=== PATIENT | male | born 1965 | race African-American/Black ===

== ENCOUNTER 2022-06-16 10:11 | Observation (INO) | payer BC, MEDICAID ==
[2022-06-13 14:41] LABS: BASOPHILS % (AUTO) 0.7 % (0-1); EOSINOPHILS # (AUTO) 0.2 X10'3 (0-0.9); EOSINOPHILS % (AUTO) 4.9 % (0-6); LYMPHOCYTES # (AUTO) 1.3 X10'3 (1.1-4.8); LYMPHOCYTES % (AUTO) 27.3 % (21-51); MEAN CORPUSCULAR HEMOGLOBIN 31.2 PG (27.0-31.0); MEAN CORPUSCULAR HGB CONC 32.7 g/dL (33.0-36.5); MEAN CORPUSCULAR VOLUME 95.4 FL (78-98); MEAN PLATELET VOLUME 8.9 FL (7.4-10.4); MONOCYTES # (AUTO) 0.5 X10'3 (0-0.9); MONOCYTES % (AUTO) 10.4 % (2-12); NEUTROPHILS # (AUTO) 2.8 X10'3 (1.8-7.7); NEUTROPHILS % (AUTO) 56.7 % (42-75); PRE OP HEMATOCRIT 46.6 % (42.0-52.0); PRE OP HEMOGLOBIN 15.2 g/dL (14.0-17.9); PRE OP PLATELET COUNT 207 X10'3 (140-440); RED BLOOD COUNT 4.88 X10'6 (4.70-6.10); RED CELL DISTRIBUTION WIDTH 14.3 % (11.5-14.5)
[2022-06-13 14:51] LABS: PRE OP INR 1.1 INR; PRE OP PROTIME 11.5 SECONDS (9.0-12.0)
[2022-06-13 14:56] LABS: HEMOGLOBIN A1C 6.1 % (4.5-6.2)
[2022-06-13 14:57] LABS: ALBUMIN 3.8 G/DL (3.4-5.0); ALBUMIN/GLOBULIN RATIO 0.9 (1.1-1.5); ALKALINE PHOSPHATASE 73 IU/L (46-116); BLOOD UREA NITROGEN 20 MG/DL (7-18); BUN/CREATININE RATIO 11.1 (5.4-32.0); CALCIUM 8.9 MG/DL (8.5-10.1); CHLORIDE 101 MMOL/L (99-107); PRE OP ALT 39 U/L (30-65); PRE OP ANION GAP 6 (8-16); PRE OP AST 31 U/L (10-37); PRE OP BILIRUB, TOTAL 0.7 MG/DL (0.0-1.0); PRE OP GLUCOSE 93 MG/DL (70-104); PRE OP POTASSIUM 4.2 MMOL/L (3.4-5.1); PRE OP SODIUM 138 MMOL/L (135-145); TOTAL CARBON DIOXIDE 31.4 MMOL/L (24-32); TOTAL PROTEIN 8.1 G/DL (6.4-8.2); eGFR 47 ML/MIN
[2022-06-16] VITALS (13 sets, daily range): BP systolic 109–144; BP diastolic 79–102
[~2022-06-16] VITALS: Ht 180.3 cm; Wt 132.7 kg
[~2022-06-16 10:11] MED LIST: AMIO400T5 PO; APIX5TAB5 PO; ASPI-611 PO; ATOR40TA PO; BUME2TAB7 PO; CARV3.122 PO; EZET10TA48 PO; GABA-530; MEXI150C PO; SACU1TAB PO; SPIR25TA5 PO; famotidine 20mg tablet PO ONE; normal saline 1000ml 1,000 ML IV ONE; ringers solution, lacted 1,000 ML IV SCH
[2022-06-16] MEDS ORDERED: fentaNYL/PF 50MCG/1 ML 2ML syringe ONE ×2 (10:51→13:58)
[2022-06-16] MEDS ORDERED: midazolam 1 mg/ML 2ml injection ONE ×2 (10:51→13:59)
[2022-06-16] MEDS ORDERED: iohexol 350MG/ML 100ml bottle IV ONE (10:51)
[2022-06-16] MEDS ORDERED: vancomycin 1,000mg inj ONE (10:51)
[2022-06-16] MEDS ORDERED: LIDOCAINE 2%/EPI 1:100,000 inj. Multi-dose 20 ML VIAL ONE ×2 (10:52→10:53)
[2022-06-16] MEDS ORDERED: etomidate 2mg/ml inj. ONE (13:59)
[2022-06-16] MEDS ORDERED: dexamethasone sod phosphate 10mg/ml inj ONE (14:02)
[2022-06-16] MEDS ORDERED: sevoflurane 250ml liquid IH ONE (14:02)
[2022-06-16] MEDS ORDERED: ceFAZolin 1000mg inj ONE ×3 (14:35→16:50)
[2022-06-16] MEDS ORDERED: rocuronium 10mg/ml inj IV ONE (14:35)
[2022-06-16] MEDS ORDERED: propofol inj 20 ML IV ONE (14:35)
[2022-06-16] MEDS ORDERED: VANCOMYCIN 1,500MG inj. 1,500 MG in normal saline 500ml IV soln 300 ML IV SCH ×2 (15:06→15:09)
[2022-06-16] MEDS ORDERED: iohexol 350 MG/ML 50ML vial IV ONE (15:36)
[2022-06-16] MEDS ORDERED: sugammadex 200mg/2ml injection IV ONE (17:46)
--- NOTE | 2022-06-16 18:02 | NUR ---
Received from OR via [facility] IN STABLE CONDITION , accompanied by Anesthesiologist and ART THERAPY CERTIFIED SUPERVISOR report given by ART THERAPY CERTIFIED SUPERVISOR AND Anesthesiolgist. Addendum: 06/16/22 at 1914 by Jo-Ann Lemos RN Amended: Links added.
[2022-06-16] MEDS ORDERED: ondansetron/PF 4mg/2ml inj IV PRN (18:15)
[2022-06-16] MEDS ORDERED: morphine 4 MG/ML inj SYRINge IV PRN (18:15)
[2022-06-16] MEDS ORDERED: ringers solution, lacted 1,000 ML IV SCH (18:15)
[2022-06-16] MEDS ORDERED: meperidine/PF 25mg/ml syringe IV PRN ×3 (18:15)
[2022-06-16] MEDS ORDERED: proCHLORperazine 10 MG/2 ml inj IV PRN (18:15)
[2022-06-16] MEDS ORDERED: morphine 2 MG/ML inj. syringe IV PRN (18:15)
[2022-06-16] MEDS ORDERED: normal saline 1000ml 1,000 ML IV SCH (18:40)
[2022-06-16] MEDS ORDERED: HYDROcodone/acetaminophen 10/325mg tab PO PRN (18:40)
[2022-06-16] MEDS ORDERED: HYDROcodone/acetaminophen 5mg/325mg tablet PO PRN (18:40)
[2022-06-16] MEDS ORDERED: normal saline 1000ml 600 ML IV SCH (18:55)
[2022-06-16] MEDS ORDERED: clindamycin 600mg/D5W 50ml IVPB IV SCH (19:00)
--- NOTE | 2022-06-16 19:42 | NUR ---
PATIENT DISCHARGED FROM PACU IN STABLE CONDITION AFTER REPORT GIVEN TO RN TAKING OVER PATIENTS CARE. PATIENT TRANSFERRED TO ROOM 301 VIA ROSITA العلي RN. Addendum: 06/16/22 at 1947 by Jo-Ann Lemos RN Amended: Links added.
[2022-06-16] MEDS: clindamycin 600mg/D5W 50ml 50 ML IV SCH (20:33)
[2022-06-16] MEDS: gabapentin 100mg capsule PO SCH (20:34)
[2022-06-16] MEDS: sacubitril/valsartan 24mg-26mg tablet PO SCH (20:34)
[2022-06-16] MEDS: carVEDilol 3.125mg tablet PO SCH (20:34)
[2022-06-17] MEDS ORDERED: Mexiletine Hcl 150 MG PO SCH
--- NOTE | 2022-06-17 00:20 | NUR ---
pt had blood spreading to a larger area on bandage, reinfornced bandage with gauze
[2022-06-17 02:00] VITALS: BP 148/79
[2022-06-17 06:30] VITALS: BP 136/102
[2022-06-17 07:05] LABS: ALBUMIN 3.3 G/DL (3.4-5.0); ANION GAP 8 (8-16); BLOOD UREA NITROGEN 22 MG/DL (7-18); BUN/CREATININE RATIO 12.6 (5.4-32.0); CALCIUM 8.6 MG/DL (8.5-10.1); CHLORIDE 102 MMOL/L (99-107); CREATININE 1.74 MG/DL (0.60-1.10); GLUCOSE 122 MG/DL (70-104); POTASSIUM 4.7 MMOL/L (3.5-5.1); SODIUM 135 MMOL/L (135-145); TOTAL CARBON DIOXIDE 25.1 MMOL/L (24-32); eGFR 49 ML/MIN
[2022-06-17] MEDS: carVEDilol 3.125mg tablet PO SCH (07:59)
[2022-06-17] MEDS: gabapentin 100mg capsule PO SCH (07:59)
[2022-06-17] MEDS: sacubitril/valsartan 24mg-26mg tablet PO SCH (07:59)
[2022-06-17] MEDS: clindamycin 600mg/D5W 50ml 50 ML IV SCH (07:59)
[2022-06-17] MEDS ORDERED: ezetimibe 10mg tablet PO SCH (08:00)
[2022-06-17] MEDS ORDERED: spironolactone 25 MG tablet PO SCH (08:00)
[2022-06-17] MEDS ORDERED: amiodarone 200mg tablet PO SCH (08:00)
[2022-06-17] MEDS ORDERED: aspirin 81mg, enteric-coated 1 TAB TABLET.DR PO SCH (08:00)
[2022-06-17] MEDS ORDERED: atorvastatin 20mg tablet PO SCH (08:00)
[2022-06-17] MEDS ORDERED: bumetanide 1mg tablet PO SCH (08:00)
--- NOTE | 2022-06-17 09:00 | NUR ---
Dr Galvan on the floor, he changed the dressing over pacemaker. Advised patient to see him in his office tomorrow 06/18 UNLESS it starts to bleed. Pt verbalized understanding. I was with the Dr in the room and assisted with dressing change as well.
[2022-06-17] MEDS ORDERED: CLIN150C2 PO (09:56)
--- NOTE | 2022-06-17 09:56 | NUR ---
Called Dr Galvan to clarify written clindamycin order. Clindamycin comes in 150mg caps. Order clarified to 4 caps (total 600 mg) PO Q8H total caps 42.
--- NOTE | 2022-06-17 10:15 | NUR ---
Called mandi santa on [address] - gave cleocin order over the phone.
[2022-06-17 10:30] VITALS: BP 128/80
--- NOTE | 2022-06-17 10:50 | NUR ---
Pt stable for d/c rev'd all d/c ppwk with patient. All questions, comments, concerns were answered at this time. PIV x 2 were removed - pt tolerated well. Tele removed and returned to television repairman monitor. All personal belongings were sent with patient. Education revd and reiterated with patient. Patient verbalized understanding. Pt was wheeled out by nursing staff in w/c. He walked over in the direction that his friend was parked/ He said if he's not there he will just walk home. [place] lives [address].
[2022-06-17] MEDS ORDERED: apixaban 5mg tablet PO SCH (20:00)
== END 2022-06-17 10:50 | disposition home or self-care (01) ==
LOC: PAS 10:11 → PCU 3S 19:06
PROVIDERS: ADMIT Internal Medicine Cardiovascular Disease; ATTEND Internal Medicine Cardiovascular Disease
DX: I42.0 Dilated cardiomyopathy (principal); I48.91 Unspecified atrial fibrillation; I10 Essential (primary) hypertension; E11.9 Type 2 diabetes mellitus without complications; I47.20 Ventricular tachycardia, unspecified; Z79.899 Other long term (current) drug therapy
CPT/HCPCS: 33216; 33224; 33264; 36415; 71045; 71046; 80048; 80053; 82948; 83036; 85025; 85610; 85730; 86885; 86900; 86901; 86920; 93005; 93641; 94660; 94760; 96365; 96366; 96367; C1769; C1882; C1894; C1895; C1898; G0378; J0690; J1100; J2250; J2704; J3010; J3370; J3490; J7030; J7040; J7120; Q9967; A4615; A4618; A6213; A6449